=== PATIENT | female | born 1985 | race Caucasian/White ===

== ENCOUNTER → 2017-02-03 | Outpatient (CLI) | payer OTHER ==
[2017-02-03 16:42] LABS: CH 30.9; CHCM 33.4; HDW 2.27; HGB 12.3 gm/dL (11.4-16.0); MCH 31.8 pg (25.0-35.0); MCHC 34.2 g/dL (31.0-37.0); MCV 92.9 fL (80.0-100.0); Mean Platelet Volume 8.1; RBC 3.87 m/uL (3.80-5.40); RDW 12.7 % (11.5-15.5)
[2017-02-03 17:04] LABS: Non-African American GFR(MDRD) >60 (>60 ml/min/1.73 sqM)
[2017-02-03 17:34] LABS: Hepatitis B Surface Ag Index 0.05
[2017-02-04 01:29] LABS: Treponemal Ab Non-Reactive (Non-Reactive)
[2017-02-05 04:53] LABS: Toxoplasma Antibody (IgG) <3.0 IU/mL (<7.2)
== END | disposition home or self-care (01) ==
LOC: LABWHC1 14:59
PROVIDERS: ATTEND Obstetrics & Gynecology
DX: O26.811 Pregnancy related exhaustion and fatigue, first trimester (principal); Z3A.00 Weeks of gestation of pregnancy not specified
CPT/HCPCS: 36415; 82565; 82950; 85027; 86762; 86777; 86778; 86780; 86850; 86900; 86901; 87340; 87390

== ENCOUNTER → 2017-02-09 | Outpatient (CLI) | payer OTHER ==
[2017-02-09 12:43] LABS: Glucose 3 Hour, Gest 86 mg/dL
== END | disposition home or self-care (01) ==
LOC: LABWHC1 08:18
PROVIDERS: ATTEND Obstetrics & Gynecology
DX: O24.419 Gestational diabetes mellitus in pregnancy, unspecified control (principal); Z3A.00 Weeks of gestation of pregnancy not specified
CPT/HCPCS: 36415; 82951; 82952

== ENCOUNTER → 2017-02-15 | Outpatient (CLI) | payer OTHER ==
--- NOTE | 2017-02-15 15:55 | US ---
EXAMINATION TYPE: US OB <= 14 wk fetus DATE OF EXAM: 02/15/2017 COMPARISON: NONE CLINICAL HISTORY: Z36 confirm Dates. 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 Dates by Current Scan for: (10 weeks/6 days) EDC: 09/07/2016 MATERNAL ANATOMY Uterus: 10.5 x 8.4 x 6.8cm Right Ovary: 3.9 x 4.2 x 1.7cm Left Ovary: 2.0 x 2.5 x 2.1cm Post CDS / Adnexa: wnl Presence of free fluid: no Presence of corpus luteal cyst: yes, right = 1.6cm Presence of subchorionic bleed: yes, 2.6cm GESTATION / SURVEY CRL: 3.9cm (10 weeks/6 days) MSD: wnl Yolk Sac (normal less than 6mm): not seen Heart Rate: 172 bpm Rhythm: Normal IUP: Viable IUP Date of LMP: 11/28/2016 Beta HcG (if available): not available Single live intrauterine gestation is present as gestational sac and pole are seen. Yolk Sac is not clearly identified. There is small curvilinear fluid collection measuring 2.5 x 0.4 x 2.6 cm fel t to reflect small subchorionic hemorrhage. No free fluid is seen in pelvic cul-de-sac. Both ovaries are identified. Within right ovary there is 1.6 cm peripheral hypoechoic area felt to re flect corpus luteal cyst. No suspicious extraovarian adnexal masses are seen. IMPRESSION: Single live intrauterine gestation is present, mean crown-rump length is 3.9 cm corresponding to 10 w [place] 6 day old fetus.
== END | disposition home or self-care (01) ==
LOC: RADUSWWP 15:27
PROVIDERS: ATTEND Obstetrics & Gynecology
DX: Z36 Encounter for antenatal screening of mother (principal); Z3A.10 10 weeks gestation of pregnancy
CPT/HCPCS: 76801

== ENCOUNTER 2017-08-31 06:15 | Inpatient (IN) | payer OTHER ==
[2017-08-31] MEDS ORDERED: CLINDAMYCIN 900 MG in DEXTROSE 5% IN WATER 50 ML IVPB STA ×2 (07:00)
[2017-08-31] MEDS ORDERED: LIDOCAINE 1% (PF) 10 MG/ML (30 ML SDV) SQ PRN (07:00)
[2017-08-31] MEDS ORDERED: LACTATED RINGERS 1,000 ML IV SCH (07:00)
[2017-08-31] MEDS ORDERED: OXYTOCIN 10 UNIT/ML 1 ML VIAL IM PRN (07:00)
[2017-08-31] MEDS ORDERED: CARBOPROST TROMETHAMINE 250 MCG/ML 1 ML AMP IM PRN (07:00)
[2017-08-31] MEDS ORDERED: OXYTOCIN 20 UNITS/1000 ML NS 1,000 ML IV SCH ×2 (07:00→16:15)
[2017-08-31] MEDS ORDERED: METHYLERGONOVINE 0.2 MG/ML 1 ML AMP IM PRN (07:00)
[2017-08-31 07:27] VITALS: RESP 16; BMI 35.6
[2017-08-31 07:39] LABS: Anisocytosis Slight; Basophils % (A) 0 %; Eosinophils # (A) 0.1 k/uL (0-0.7); Eosinophils % (A) 1 %; HCT 36.8 % (34.0-46.0); HGB 11.3 gm/dL (11.4-16.0); Hypochromasia Marked; Lymphocytes # (A) 2.9 k/uL (1.0-4.8); Lymphocytes % (A) 27 %; MCH 25.7 pg (25.0-35.0); MCHC 30.9 g/dL (31.0-37.0); MCV 83.1 fL (80.0-100.0); Mean Platelet Volume 9.3; Monocytes # (A) 0.6 k/uL (0-1.0); Monocytes % (A) 5 %; Neutrophils % (A) 65 %; Platelet Count 303 k/uL (150-450); Poikilocytosis Slight; RBC 4.42 m/uL (3.80-5.40); RDW 16.1 % (11.5-15.5); WBC 10.9 k/uL (3.8-10.6)
--- NOTE | 2017-08-31 08:14 | P.HPOB ---
History of Present Illness H&P Date: 08/31/17 Chief Complaint: Induction of labor 31-year-old presents at 39 weeks and 5 days for induction of labor. Her cervix is 3 cm dilated, 80% effaced, and -2 station. She is not marilou. heart tones 130-135 with moderate variability and reactive. Review of Systems All systems: negative Constitutional: Denies chills, Denies fever Eyes: denies blurred vision, denies pain Ears, nose, mouth and throat: Denies headache, Denies sore throat Cardiovascular: Denies chest pain, Denies shortness of breath Respiratory: Denies cough Gastrointestinal: Denies abdominal pain, Denies diarrhea, Denies nausea, Denies vomiting Genitourinary: Denies dysuria, Denies hematuria Musculoskeletal: Denies myalgias Integumentary: Denies pruritus, Denies rash Neurological: Denies numbness, Denies weakness Psychiatric: Denies anxiety, Denies depression Endocrine: Denies fatigue, Denies weight change Past Medical History Past Medical History: No Reported History Additional Past Medical History / Comment(s): Obstetric history: Her first was a vaginal delivery 5 lbs. 11 oz. her second was a vaginal delivery 6 pounds since she had gestational diabetes with that . Her third was a spontaneous . This is her fourth and she's had care with me since 9 weeks. Blood type is O+, antibodies negative, rubella immune, treponema antibody negative, hepatitis B negative, toxoplasmosis negative, abnormal 1 hour but a normal three-hour in the beginning of the and then she had a repeat 1 hour at 24 weeks that was normal. GBS positive History of Any Multi-Drug Resistant Organisms: None Reported Past Surgical History: No Surgical Hx Reported Past Anesthesia/Blood Transfusion Reactions: No Reported Reaction Past Psychological History: No Psychological Hx Reported Smoking Status: Former smoker Past Alcohol Use History: None Reported Past Drug Use History: None Reported - Past Family History Father Family Medical History: Hypertension Medications and Allergies Home Medications Medication Instructions Recorded Confirmed Type Pnv No.95/Ferrous Fum/Folic AC 1 tab PO ONCE 08/31/17 08/31/17 History [ Multivitamin Tablet] Allergies Allergy/AdvReac Type Severity Reaction Status Date / Time chlorpheniramine maleate Allergy Rash/Hives Verified 08/31/17 06:58 [From Deconamine] Penicillins Allergy Rash/Hives Verified 08/31/17 06:58 pseudoephedrine HCl Allergy Rash/Hives Verified 08/31/17 06:58 [From Deconamine] Sulfa (Sulfonamide Allergy Rash/Hives Verified 08/31/17 06:58 Antibiotics) Exam Osteopathic Statement: *. No significant issues noted on an osteopathic structural exam other than those noted in the History and Physical/Consult. - Vital Signs Vital signs: Vital Signs Temp Pulse Resp BP Pulse Ox 08/31/17 06:57 97.8 F 106 H 16 141/82 100 Intake and Output 08/30/17 08/31/17 08/31/17 22:59 06:59 14:59 Other: Weight 94.347 kg Heart: Regular rate and rhythm Lungs: Clear to auscultation bilaterally Abdomen: Soft, nontender Extremities: Negative Homans sign Results Result Diagrams: 08/31/17 07:10 Abnormal Lab Results - Last 24 Hours (Table) 08/31/17 Range/Units 07:10 WBC 10.9 H (3.8-10.6) k/uL Hgb 11.3 L (11.4-16.0) gm/dL MCHC 30.9 L (31.0-37.0) g/dL RDW 16.1 H (11.5-15.5) % Assessment and Plan (1) Third trimester Current Visit: No Status: Acute Code(s): Z33.1 - STATE, INCIDENTAL SNOMED Code(s): 36213982 (2) Group B streptococcal infection during Current Visit: No Status: Acute Code(s): O98.819 - OTH MATERNAL INFEC/ PARASTC DISEASES COMP PREG, UNSP TRI SNOMED Code(s): 191086782 (3) Normal labor Current Visit: Yes Status: Acute Code(s): O80 - ENCOUNTER FOR FULL-TERM UNCOMPLICATED DELIVERY; Z37.9 - OUTCOME OF DELIVERY, UNSPECIFIED SNOMED Code(s ): 76658659 Plan: 1. Antibiotics for GBS prophylaxis 2. Amniotomy and Pitocin for induction of labor. 3. Anticipate normal vaginal delivery
[2017-08-31] MEDS: LACTATED RINGERS 1,000 ML IV SCH ×2 (08:43→18:46)
[2017-08-31] MEDS ORDERED: BUTORPHANOL 1 MG/ML 1 ML VIAL IV PRN (13:14)
[2017-08-31] MEDS ORDERED: CLINDAMYCIN 900 MG in DEXTROSE 5% IN WATER 50 ML IVPB SCH ×2 (16:00)
[2017-08-31] MEDS ORDERED: diphenhydrAMINE 25 MG CAP PO PRN (16:09)
[2017-08-31] MEDS ORDERED: diphenhydrAMINE 50 MG CAP PO PRN (16:09)
[2017-08-31] MEDS ORDERED: ACETAMINOPHEN TAB 325 MG TAB PO PRN (16:09)
[2017-08-31] MEDS ORDERED: HYDROCORTISONE 2.5% RECTAL CREAM 30 GM TUBE RECTAL PRN (16:09)
[2017-08-31] MEDS ORDERED: LANOLIN CREAM 5 GM TUBE TOPICAL PRN (16:09)
[2017-08-31] MEDS ORDERED: diphenhydrAMINE 50 MG/ML 1 ML VIAL IVP PRN ×2 (16:09)
[2017-08-31] MEDS ORDERED: BENZOCAINE/MENTHOL SPRAY 1 GM/SPRAY AEROSOL TOPICAL PRN (16:09)
[2017-08-31] MEDS ORDERED: IBUPROFEN 600 MG TAB PO PRN (16:09)
[2017-08-31] MEDS ORDERED: WITCH HAZEL 1 EACH MED..PAD TOPICAL PRN (16:09)
[2017-08-31] MEDS ORDERED: ZOLPIDEM 5 MG TAB PO PRN (16:09)
[2017-08-31] MEDS ORDERED: SENNOSIDES-DOCUSATE SODIUM 1 EACH TAB PO SCH (20:00)
[2017-09-01 04:35] VITALS: BP 144/76; PULSE 92; TEMP 98.6
--- NOTE | 2017-09-01 08:16 | P.PROBDLV ---
Vaginal Delivery Note - . Vaginal Delivery Note: 31 year old presented at 39 weeks and 5 days for induction of labor. heart tones were 130-135 with moderate variability and reactive. Her cervix is dilated 3 cm, 80% effaced, -2 station. Pitocin was started and clindamycin was started for GBS prophylaxis. Amniotomy was performed at 7:55 AM and clear fluid noted. The Pitocin was increased throughout the day and the patient did have regular contractions. She started to feel like she had to have a bowel movement so she got up out of bed herself without calling the nurse or myself. When she went to the bathroom she bared down and started to deliver the baby on the toilet. She pulled the emergency cord and the nurses ran into help and I was subsequently called to the room from the office. Please see nursing notes for details of delivery. When I presented to the room the baby was in the warmer crying vigorously but I was told that there had been a tight nuchal cord that was cut at the perineum and a shoulder dystocia that was released by suprapubic pressure. Apgars were 3 at 1 minute, 5 at 8 minutes , and 8 at 10 minutes. Delivery occurred at 1513. I delivered the placenta spontaneously intact with three-vessel cord at 1517. Vagina, cervix, and perineum were inspected. First-degree midline laceration was repaired with 3-0 Vicryl. Estimated blood loss 200 mL. Mother and baby in stable condition.
--- NOTE | 2017-09-01 08:18 | P.DS ---
Providers Date of admission: 08/31/17 06:47 Expected date of discharge: 09/01/17 Attending physician: Mónica Em Primary care physician: Sarah Maciel - Discharge Diagnosis(es) (1) Third trimester Status: Resolved (2) Group B streptococcal infection during Status: Resolved (3) Normal labor Status: Resolved (4) Normal vaginal delivery Status: Acute (5) Shoulder dystocia during labor and delivery, delivered Status: Acute Hospital Course: Patient presented for induction of labor. She underwent a normal vaginal delivery with a shoulder dystocia, delivered by the nurses. Baby was 8 lbs. 3 oz. After delivery doesn't really wanted to leave the hospital that same evening fairly the next morning to take care of her other children at home. She was told she was not be able to take her other baby home until 24 hours after delivery due to the baby needing additional tests. This reason for under standing of this and still wants to go home. Her lochia is decreased, her pain is under control and she is voiding and ambulating without difficulty. She'll be discharged home day #1 in stable condition to follow-up with me in 6 weeks. Plan - Discharge Summary New Discharge Prescriptions: No Action Pnv No.95/Ferrous Fum/Folic AC [ Multivitamin Tablet] 1 tab PO ONCE Discharge Medication List Pnv No.95/Ferrous Fum/Folic AC [ Multivitamin Tablet] 1 tab PO ONCE [History] Discharge Disposition: HOME SELF-CARE
== END 2017-09-01 04:45 | disposition home or self-care (01) | DRG 774 ==
LOC: 4FBP 06:47
PROVIDERS: ADMIT Obstetrics & Gynecology; ATTEND Obstetrics & Gynecology
PROC: 10E0XZZ Delivery of Products of Conception, External Approach (ICD-10-PCS; principal; 2017-08-31)
PROC: 3E033VJ Introduction of Other Hormone into Peripheral Vein, Percutaneous Approach (ICD-10-PCS; 2017-08-31)
PROC: 0HQ9XZZ Repair Perineum Skin, External Approach (ICD-10-PCS; 2017-08-31)
DX: O98.82 Other maternal infectious and parasitic diseases complicating childbirth (principal); B95.1 Streptococcus, group B, as the cause of diseases classified elsewhere; O66.0 Obstructed labor due to shoulder dystocia; O69.1XX0 Labor and delivery complicated by cord around neck, with compression, not applicable or unspecified; O70.0 First degree perineal laceration during delivery; Z3A.39 39 weeks gestation of pregnancy; Z37.0 Single live birth; Z86.32 Personal history of gestational diabetes; Z87.891 Personal history of nicotine dependence; Z79.899 Other long term (current) drug therapy; Z88.0 Allergy status to penicillin; Z88.2 Allergy status to sulfonamides; Z88.8 Allergy status to other drugs, medicaments and biological substances
CPT/HCPCS: 85025; 88307; 88313